=== PATIENT | female | born 1985 | race Caucasian/White ===

== ENCOUNTER 2016-04-20 13:18 | Emergency (ER) | payer MEDICAID ==
[2016-04-20] MEDS ORDERED: IOPAMIDOL-300 100 ML VIAL IVP ONE (15:04)
== END 2016-04-20 17:08 | disposition home or self-care (01) ==
DX: R10.31 Right lower quadrant pain (principal); Z97.5 Presence of (intrauterine) contraceptive device; R93.8 Abnormal findings on diagnostic imaging of other specified body structures; F17.200 Nicotine dependence, unspecified, uncomplicated
CPT/HCPCS: 36415; 74177; 80053; 81003; 81025; 83690; 85025; 99283; 99284; Q9967

== ENCOUNTER 2016-05-06 10:03 | Outpatient (CLI) | payer MEDICAID | END 2016-05-06 10:04 | disposition home or self-care (01) | DX: Z12.31 Encounter for screening mammogram for malignant neoplasm of breast (principal); R92.8 Other abnormal and inconclusive findings on diagnostic imaging of breast; Z80.3 Family history of malignant neoplasm of breast ==

== ENCOUNTER 2016-05-19 11:13 | Outpatient (CLI) | payer MEDICAID | END 2016-05-19 11:14 | disposition home or self-care (01) | DX: R92.8 Other abnormal and inconclusive findings on diagnostic imaging of breast (principal) ==

== ENCOUNTER 2016-07-31 13:38 | Emergency (ER) | payer MEDICAID ==
[2016-07-31 13:45] VITALS: BP 110/73
--- NOTE | 2016-07-31 14:27 | ED Physician Documentation ---
PD HPI SKIN - Stated complaint Stated Complaint: R ARM RASH - Chief complaint Chief Complaint: Wound - History obtained from History obtained from: Patient - History of Present Illness Timing - onset: How many days ago (5) Timing - duration: Days (5) Timing - details: Gradual onset Pain level max: 0 Pain level now: 0 Location: Other (R UE upper arm) Quality / character: Discolored, Raised, Vesicular, Swelling. No: Itchy Improved by: Other (nothing) Worsened by (comment): COMMENT (nothing) Associated symptoms: No: Fever, Myalgias, Joint pain, Headache, Facial swelling , Dyspnea, Abd pain, N/V/D, Urinary sx Contributing factors: Other (new tattoo) Similar symptoms before: Has not had sx before Recently seen: Not recently seen Review of Systems Constitutional: denies: Fever, Chills Cardiac: denies: Chest pain / pressure Respiratory: denies: Cough GI: denies: Abdominal Pain, Nausea, Vomiting, Diarrhea : denies: Now EGA Musculoskeletal: denies: Neck pain, Back pain Neurologic: denies: Headache PD PAST MEDICAL HISTORY - Past Medical History Past Medical History: Yes Psych: Depression Musculoskeletal: Other Other Past Medical History: ankylosing spondylitis - Past Surgical History Past Surgical History: No - Present Medications Home Medications: Ambulatory Orders Medication Instructions Recorded Confirmed Meloxicam [Mobic] 15 mg PO BID 12/30/14 07/31/16 Sulfamethox/Trimeth 800/160 1 each PO BID #14 tablet 07/31/16 [Bactrim Ds 800/160] - Allergies Allergies/Adverse Reactions: Allergies Allergy/AdvReac Type Severity Reaction Status Date / Time Penicillins Allergy Hives Verified 07/31/16 14:24 prednisone Allergy Unknown Verified 07/31/16 14:24 - Living Situation Living Situation: reports: With family Living Arrangement: reports: At home - Social History Does the pt smoke?: Yes Smoking Status: Current every day smoker Does the pt drink ETOH?: Yes Does the pt have substance abuse?: Yes - Immunizations Immunizations are current?: Yes - POLST Patient has POLST: No PD ED PE NORMAL - Vitals Vital signs reviewed: Yes - General General: Alert and oriented X 3, No acute distress - HEENT HEENT: Moist mucous membranes - Derm Derm: Warm and dry, Other (R upper arm, diffuse folliculitis, no abscess, mild erythema. no pustules.) - Neuro Neuro: Alert and oriented X 3 - Psych Psych: Normal mood, Normal affect Results - Vitals Vitals: Vital Signs - 24 hr 07/31/16 13:41 Temperature 36.5 C Heart Rate 53 L Respiratory 16 Rate Blood Pressure 110/73 O2 Saturation 100 Oxygen O2 Source Room air PD MEDICAL DECISION MAKING - ED course Complexity details: considered differential, d/w patient ED course: Patient is a 31-year-old female who presents to the emergency department with a diffuse folliculitis/cellulitis of the right upper arm. Will place on Bactrim for home. She is well-appearing, nontoxic. Afebrile. No confluent cellulitis. No abscess. Patient is not , breast-feeding or trying to become . Patient counseled regarding signs and symptoms for which I believe and urgent re-evaluation would be necessary. Patient with good understanding of and agreement to plan and is comfortable going home at this time This document was made in part using voice recognition software. While efforts are made to proofread this document, sound alike and grammatical errors may occur. Departure - Departure Disposition: 01 Home, Self Care Clinical Impression: Folliculitis Cellulitis Qualifiers: Site of cellulitis: extremity Site of cellulitis of extremity: upper extremity Laterality: right Qualified Code(s): L03.113 - Cellulitis of right upper limb Condition: Good Instructions: ED Infec Skin Cellulitis Follow-Up: ASH VELEZ [Primary Care Provider] - Within 3 Days (for wound check) Prescriptions: Sulfamethox/Trimeth 800/160 [Bactrim Ds 800/160] 1 each PO BID #14 tablet Comments: Take all antibiotics until gone. Return if you worsen. Discharge Date/Time: 07/31/16 14:30
== END 2016-07-31 14:30 | disposition home or self-care (01) ==
LOC: ED 13:38
DX: L73.9 Follicular disorder, unspecified (principal); L03.113 Cellulitis of right upper limb; F17.200 Nicotine dependence, unspecified, uncomplicated
CPT/HCPCS: 99283

== ENCOUNTER 2017-04-17 16:12 | Emergency (ER) | payer OTHER, MEDICAID ==
[2017-04-17 16:24] VITALS: BP 135/78
[2017-04-17] MEDS ORDERED: IBUPROFEN 800 MG TABLET PO STA (17:21)
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
== END 2017-04-17 18:33 | disposition home or self-care (01) ==
LOC: ED 16:12
DX: S60.212A Contusion of left wrist, initial encounter (principal); S60.211A Contusion of right wrist, initial encounter; S40.022A Contusion of left upper arm, initial encounter; S40.021A Contusion of right upper arm, initial encounter; Y08.89XA Assault by other specified means, initial encounter; F17.200 Nicotine dependence, unspecified, uncomplicated
CPT/HCPCS: 99283; A9270

== ENCOUNTER 2022-07-19 15:03 | Outpatient (CLI) | payer OTHER, MEDICAID | END 2022-07-19 15:04 | disposition critical access hospital (66) | LOC: EMS 15:03 | DX: R41.0 Disorientation, unspecified (principal); R44.1 Visual hallucinations; R45.1 Restlessness and agitation; S80.212A Abrasion, left knee, initial encounter; S80.211A Abrasion, right knee, initial encounter; V87.8XXA Person injured in other specified noncollision transport accidents involving motor vehicle (traffic), initial encounter; Y92.414 Local residential or business street as the place of occurrence of the external cause | CPT/HCPCS: A0425; A0427 ==

== ENCOUNTER 2022-07-19 15:11 | Emergency (ER) | payer OTHER, MEDICAID ==
[2022-07-19 15:41] LABS: BASOPHILS # (AUTO) 0.1 10^3/uL (0.0-0.1); BASOPHILS % (AUTO) 0.7 %; EOSINOPHILS # (AUTO) 0.3 10^3/uL (0.0-0.7); EOSINOPHILS % (AUTO) 3.4 %; HCT - HEMATOCRIT 38.9 % (37.0-47.0); HGB - HEMOGLOBIN 12.4 g/dL (12.0-16.0); LYMPHOCYTES # (AUTO) 2.3 10^3/uL (1.5-3.5); LYMPHOCYTES % (AUTO) 31.8 %; MEAN CORPUSCULAR HEMOGLOBIN 30.3 pg (27.0-31.0); MEAN CORPUSCULAR HGB CONC 31.9 g/dL (32.0-36.0); MEAN CORPUSCULAR VOLUME 95.1 fL (81.0-99.0); MEAN PLATELET VOLUME 9.6 fL (7.9-10.8); MONOCYTES # (AUTO) 0.4 10^3/uL (0.0-1.0); MONOCYTES % (AUTO) 5.6 %; NEUTROPHILS # (AUTO) 4.2 10^3/uL (1.5-6.6); NEUTROPHILS % (AUTO) 58.2 %; PLT - PLATELET COUNT 248 10^3/uL (130-450); RED BLOOD COUNT 4.09 10^6/uL (4.20-5.40); RED CELL DISTRIBUTION WIDTH 13.1 % (12.0-15.0); WHITE BLOOD COUNT 7.3 x10^3/uL (4.8-10.8)
[2022-07-19] MEDS ORDERED: iohexoL-300 100 ML VIAL ONE (15:50)
[2022-07-19] MEDS ORDERED: TETANUS/DIPHTHERIA/PERTUSSIS 0.5 ML SYRINGE IM ONE (15:53)
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
[2022-07-19 16:19] LABS: ACETAMINOPHEN < 10 ug/mL (10-30); ALBUMIN 3.8 g/dL (3.2-5.5); ALBUMIN/GLOBULIN RATIO 1.7 (1.0-2.2); ALKALINE PHOSPHATASE 68 IU/L (42-121); ALT ALANINE AMINOTRANSFERASE 15 IU/L (10-60); AST ASPARTATE AMINOTRANSFERASE 15 IU/L (10-42); BILIRUBIN,TOTAL 0.5 mg/dL (0.2-1.0); BUN - BLOOD UREA NITROGEN 13 mg/dL (6-20); CALCIUM 8.8 mg/dL (8.5-10.3); CARBON DIOXIDE - CO2 23 mmol/L (21-32); CHLORIDE 109 mmol/L (101-111); CREATININE 0.8 mg/dL (0.4-1.0); ETOH - ETHANOL < 5.0 mg/dL; GFR - MDRD 81 (>89); GLUCOSE 128 mg/dL (70-100); LIPASE 35 U/L (22-51); POTASSIUM 3.6 mmol/L (3.5-5.0); SALICYLATE < 6.0 mg/dL; SODIUM 142 mmol/L (135-145)
[2022-07-19 16:25] LABS: HCG,QUALITATIVE BLOOD NEGATIVE
[2022-07-19] MEDS ORDERED: SODIUM CHLORIDE 0.9% 1,000 ML IV STA (17:05)
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
[2022-07-19] MEDS ORDERED: iohexoL-300 100 ML VIAL IVP ONE (18:28)
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
[2022-07-19] MEDS ORDERED: ACETAMINOPHEN 325 MG TABLET PO STA (18:55)
[2022-07-19] MEDS ORDERED: diazePAM 5 MG TABLET PO STA (19:15)
[2022-07-20 00:16] LABS: MUDS CUTOFF CONCENTRATIONS CUTOFF CONC BELOW:
[2022-07-20 00:22] LABS: BILIRUBIN,URINE NEGATIVE (NEGATIVE); GLUCOSE, URINE (UA) NEGATIVE (NEGATIVE); KETONES,URINE (UA) NEGATIVE (NEGATIVE); LEUKOCYTE ESTERASE, URINE NEGATIVE (NEGATIVE); NITRITE,URINE NEGATIVE (NEGATIVE); OCCULT BLOOD,URINE NEGATIVE (NEGATIVE); PH,URINE 5.5 PH (5.0-7.5); PROTEIN,URINE NEGATIVE (NEGATIVE); UROBILINOGEN,URINE 0.2 (NORMAL) E.U./dL (NORMAL)
[2022-07-20 00:31] LABS: CLARITY,URINE CLEAR (CLEAR)
[2022-07-20 00:43] LABS: AMPHETAMINE SCREEN,URINE NEGATIVE (NEGATIVE); BARBITURATE SCREEN,UR NEGATIVE (NEGATIVE); BENZODIAZEPINES SCREEN, URINE POSITIVE (NEGATIVE); COCAINE SCREEN URINE NEGATIVE (NEGATIVE); METHADONE SCREEN, URINE NEGATIVE (NEGATIVE); METHAMPHETAMINES SCREEN, URINE NEGATIVE (NEGATIVE); OPIATE SCREEN, URINE NEGATIVE (NEGATIVE); OXYCODONE SCREEN, URINE NEGATIVE (NEGATIVE); PROPOXYPHENE SCREEN, URINE NEGATIVE (NEGATIVE); THC CANNABINOID SCREEN, URINE POSITIVE (NEGATIVE); TRICYCLIC ANTIDEPRESSANT,URINE NEGATIVE (NEGATIVE)
[2022-07-20] MEDS ORDERED: diazePAM 5 MG TABLET PO STA ×2 (01:04→23:02)
[2022-07-20] MEDS ORDERED: OLANZapine 10 MG VIAL IM ONE (02:00)
[2022-07-20] MEDS ORDERED: OLANZapine 10 MG VIAL IM STA (02:04)
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
--- NOTE | 2022-07-20 06:20 | ED Physician Documentation ---
Restraint [id number] - Immediate Situation Face to Face Evaluation Date: 07/20/22 Face to Face Evaluation Time: 06:17 Restraint Classification: Violent, seclusion Restraint Type: Seclusion - Patient's Reaction & Behaviors Safety: Physically safe, Compliant Other: Resting quietly - Behavioral Condition Attitude: Indifferent Behavior: Agitated Orientation: Non-responsive (does not answer orientation questions with appropriate responses) Mood: Labile, Angry - Evaluation Review of Systems: uncooperative Pertinent History/Illicit Drugs/Medications/Results: see H+P - Plan Need to Continue or Terminate Violent or Chemical Restraint: will discontinue when safe, which needs to include exhibiting behavior and engaging in conversation that are consistent with being cooperative, oriented x 3, and good/safe decision making
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
[2022-07-20] MEDS ORDERED: NICOTINE 21 MG PATCH TOP STA (14:25)
[2022-07-20] MEDS ORDERED: NICOTINE 14 MG PATCH TOP STA (14:30)
[2022-07-20] MEDS ORDERED: NICOTINE 14 MG PATCH TOP ONE (14:35)
[2022-07-20 18:45] VITALS: BP 108/62
[2022-07-20] MEDS ORDERED: ACETAMINOPHEN 325 MG TABLET PO STA ×2 (21:35→21:36)
== END 2022-07-20 23:14 ==
LOC: ED 15:11
DX: S09.90XA Unspecified injury of head, initial encounter (principal); V49.88XA Car occupant (driver) (passenger) injured in other specified transport accidents, initial encounter; Y92.410 Unspecified street and highway as the place of occurrence of the external cause; F29 Unspecified psychosis not due to a substance or known physiological condition; F25.0 Schizoaffective disorder, bipolar type; F17.200 Nicotine dependence, unspecified, uncomplicated; Z20.822 Contact with and (suspected) exposure to COVID-19; Z23 Encounter for immunization; Z79.899 Other long term (current) drug therapy
CPT/HCPCS: 36415; 70450; 71260; 72125; 74177; 80053; 80306; 80307; 80320; 80329; 81003; 83690; 84443; 84703; 85025; 87635; 90471; 90715; 93005; 96372; 99285; A9270; G0425; Q3014; Q9967; 81001; 87086